=== PATIENT | male | born 1950 | race Caucasian/White ===

== ENCOUNTER → 2019-12-13 | Outpatient (CLI) | payer OTHER, MEDICARE ==
[~2019-12-13] MED LIST: ASPIRIN325 PO; ATORVASTATIN CA40 MG PO; EFFIENT10 MG PO; LISINOPRIL2.5 MG PO; PROSTATE HEALT1 EAC1 PO; TYLENOL325 MG PO
== END ==
LOC: SJCVC 10:16
DX: I25.10 Atherosclerotic heart disease of native coronary artery without angina pectoris (principal); I10 Essential (primary) hypertension; E78.5 Hyperlipidemia, unspecified; E55.9 Vitamin D deficiency, unspecified; Z96.659 Presence of unspecified artificial knee joint

== ENCOUNTER → 2020-07-02 | Outpatient (CLI) | payer OTHER, MEDICARE | LOC: SJCVC 10:04 | PROVIDERS: ATTEND Internal Medicine | DX: I25.10 Atherosclerotic heart disease of native coronary artery without angina pectoris (principal); R00.1 Bradycardia, unspecified; I10 Essential (primary) hypertension; E78.5 Hyperlipidemia, unspecified; Z79.899 Other long term (current) drug therapy ==